=== PATIENT | female | born 1955 | race Caucasian/White ===

== ENCOUNTER → 2019-02-03 | Outpatient (CLI) | payer OTHER ==
--- NOTE | 2019-02-03 13:47 | REP ---
CT ABDOMEN AND PELVIS WITHOUT IV CONTRAST: CT abdomen and pelvis performed without oral or IV contrast. Sagittal and coronal reconstruction images are performed. In the visualized lung bases, there are mild fibroatelectatic changes and mild bronchiectasis. There is a large hiatal hernia. The liver, spleen, adrenals, pancreas and kidneys are grossly unremarkable. There is no renal or ureteral calculus and no hydroureteronephrosis. There is no abdominal aortic aneurysm. There is no adenopathy. No free air or free fluid. I see no bowel wall thickening. There is no evidence of appendicitis. I see no pelvic mass. Urinary bladder is mildly distended and grossly unremarkable. There are degenerative changes of the spine. Mild sigmoid diverticulosis is present without acute diverticulitis. IMPRESSION: Large hiatal hernia. Mild sigmoid diverticulosis. No acute findings in the abdomen or pelvis. Electronically Signed by Juan Rees MD 02/04/2019 02:52 P
== END ==
LOC: M RAD 12:12
PROVIDERS: ATTEND Physician Assistant
DX: K44.9 Diaphragmatic hernia without obstruction or gangrene (principal); K57.30 Diverticulosis of large intestine without perforation or abscess without bleeding